=== PATIENT | male | born 1990 | race Caucasian/White ===

== ENCOUNTER 2019-04-21 09:14 | Inpatient (IN) ==
[2019-04-21] MEDS ORDERED: 0.9 % Sodium Chloride 1,000 ML IVC ONE ×2 (09:21→13:01)
[2019-04-21] MEDS ORDERED: *HR* LORazepam 2 MG/ML VIAL IVP ONE ×4 (09:21→13:01)
--- NOTE | 2019-04-21 09:51 | Emergency Department Note ---
Disposition Clinical Impression: Methamphetamine abuse, Tachycardia, Elevated blood pressure reading Altered mental status Qualifiers: Altered mental status type: unspecified Qualified Code(s): R41.82 - Altered mental status, unspecified Disposition: Admitted As Inpatient Condition: Fair Referrals: NONE,PCP [Primary Care Provider] - Forms: ED Satisfaction Letter Time of Disposition: 12:02 General Adult HPI - General Chief complaint: ED Altered Mental Status Stated complaint: od Time Seen by Provider: 04/21/19 09:20 Source: EMS Limitations: altered mental status Nursing Notes Reviewed: Yes Vital Signs Reviewed: Yes - History of Present Illness HPI Narrative: I did see the patient immediately upon arrival and also spoke with the paramedics and the patient presents after they found him outside and confused. I did review the previous record with potential abuse of cold medications/cough medications. The patient is unable to give any history at this time secondary to altered level of consciousness. The paramedics were unaware of any traumathe did not get any history or see any trauma on the patient. He has been tachycardic and blood pressure was 180 for the paramedics. Pain Scale: 0 - Related Data Home Medications Medication Instructions Recorded Confirmed ARIPiprazole [Abilify] 5 mg PO DAILY 02/25/19 02/25/19 Escitalopram [Lexapro] 10 mg PO DAILY 02/25/19 02/25/19 Gabapentin 800 mg PO TID 02/25/19 02/25/19 Allergies Allergy/AdvReac Type Severity Reaction Status Date / Time No Known Allergies Allergy Verified 03/12/19 09:26 Limitations: ROS unobtainable due to patients medical condition Past Medical History - Past Medical History Medical history: Reports: no medical history Psychiatric history: Reports: no psych history - Social History Smoking Status: Current every day smoker Smokeless Tobacco Status: No Alcohol use: Reports: none Drug use: Reports: other Physical Exam CONSTITUTIONAL: The patient is agitated, intermittently flailing arms and legs, pupils are slightly larger than normal but are reactive. Skin color is good. He is mildly diaphoretic. He is tachycardic. He does not respond to questions but does make eye contact when he is questioned. Making incomprehensible sounds. No gross evidence of trauma. HEAD: Normocephalic; atraumatic. EYES: PERRL, no scleral icterus. NOSE: The nose is normal in appearance without rhinorrhea RESP: Normal chest excursion with respiration; breath sounds clear and equal bilaterally; no wheezes, rhonchi, or rales CARD: Regular rhythm, without murmurs, rub or gallop ABD: Non-distended; non-tender, soft,without rigidity, rebound or guarding SKIN: Normal for age and race; warm and dry; no apparent lesions - General Limitations: altered mental status General appearance: alert, appears intoxicated Course Vital Signs Temperature 98.4 F 04/21/19 09:20 Pulse Rate 144 04/21/19 09:20 Respiratory Rate 20 04/21/19 09:20 Blood Pressure 152/110 04/21/19 09:20 O2 Sat by Pulse Oximetry 97 04/21/19 09:20 Temperature 98.4 F 04/21/19 09:20 Pulse Rate 134 04/21/19 13:47 Respiratory Rate 20 04/21/19 13:47 Blood Pressure 150/82 04/21/19 13:47 O2 Sat by Pulse Oximetry 98 04/21/19 13:47 Oxygen Delivery Oxygen Delivery Room Air Medical Decision Making - MDM Narrative Medical decision making narrative: The patient has the appearance of a overdose and we are initiating testing for this including serum and urine toxicology testing. The patient did receive 1 mg of Ativan and I did check on him multiple times and I just did give a second milligram of Ativan about 1 minute agothat is when he received it. We will continue to check on the patient. He is more responsive. He did say hi to the tech who is in the room but otherwise he is still intermittently flailing around and is still quite tachycardic with a heart rate in the 150s. We will continue to give additional benzodiazepines prn. 0950 I reassessed the patient on multiple occasions. He is improved and is able to carry on some minimal conversation with me. Said he did use methamphetamine this morning. He is still altered and will need to be admitted to the hospital. CT scan of the brain and chest x-ray are negative. Urine toxicology is pending. The patient denies any suicidal ideation 1202 I did speak with Dr. Power who except the patient for admission. The patient's current heart rate is 127 bpm and a sinus tachycardia and the patient will receive 1 additional liter of fluid as well as one additional milligram of Ativan. He is significantly improved but is in no way ready for discharge home. The patient is going to be admitted to the stepdown unit. 1302 I did review the patient's EKG showing sinus tachycardia with a rate of 126 bpm without acute ischemic change or evidence of arrhythmia and this was done at 10:26 AM today. 1421 - Medical Records Medical records reviewed: Yes I reviewed the patient's medical records. - Lab Data Lab results reviewed: Yes I reviewed the patient's lab results. Result diagrams: 04/21/19 09:21 04/21/19 09:21 Lab Results 04/21/19 04/21/19 04/21/19 Range/Units 09:21 09:21 11:31 WBC 11.4 H (4.3-11.1) K/mcL RBC 5.33 (4.19-5.50) M/mcL Hgb 15.3 (12.9-16.9) g/dL Hct 47.4 (37.5-50.1) % MCV 88.9 (83.0-100.0) fL MCH 28.7 (28.0-33.3) pg MCHC 32.3 (31.6-35.5) g/dL RDW 14.6 H (11.5-14.5) % Plt Count 302 (140-400) K/mcL MPV 11.7 (9.4-12.4) fL Immature Gran % 0.5 (0-4) % Seg Neutrophils % 65.9 % Lymphocytes % 24.1 % Monocytes % 8.2 % Eosinophils % 0.9 % Basophils % 0.4 % Neutrophils # 7.5 (1.6-8.9) K/mcL Lymphocytes # 2.8 (0.6-4.6) K/mcL Monocytes # 0.9 (0.0-1.3) K/mcL Eosinophils # 0.1 (0.0-0.6) K/mcL Basophils # 0.1 (0.0-0.2) K/mcL Sodium 142 (136-145) mEq/L Potassium 4.2 (3.5-5.1) mEq/L Chloride 105 (98-107) mEq/L Carbon Dioxide 28 (23-29) mEq/L BUN 16 (6-20) mg/dL Creatinine 1.14 (0.70-1.30) mg/dL Est GFR ( Amer) > 60 (> 60) Est GFR (Non-Af Amer) > 60 (> 60) BUN/Creatinine Ratio 14 (6-26) Glucose 114 H (70-105) mg/dL Calculated Osmolality 296 (280-300) Calcium 9.9 (8.6-10.3) mg/dL Total Bilirubin 0.4 (0.3-1.0) mg/dL Direct Bilirubin 0.1 (0.0-0.2) mg/dL Indirect Bilirubin 0.3 (0.0-1.2) mg/dL AST 61 H (13-39) Units/L ALT 99 H (7-52) Units/L Alkaline Phosphatase 127 H (34-104) Units/L Serum Total Protein 8.2 (6.4-8.9) g/dL Albumin 4.8 (3.5-5.7) g/dL Globulin 3.4 (2.4-3.5) g/dL Albumin/Globulin Ratio 1.4 (1.1-2.2) Urine Color Dark Yellow (Yellow) Urine Clarity Clear (Clear) Urine pH 5.5 (5.0-8.0) pH Units Ur Specific [place] > 1.030 H (1.010-1.025) Urine Protein 30 H (Neg-Trace) mg/dL Urine Glucose (UA) Normal (Normal) mg/dL Urine Ketones Negative (Negative) mg/dL Urine Blood Negative (Negative) Urine Nitrite Negative (Negative) Urine Bilirubin Negative (Negative) Urine Urobilinogen Normal (Normal) mg/dL Ur Leukocyte Esterase Negative (Negative) Urine Microscopic RBC 0-3 (0-3) per hpf Urine Microscopic WBC 5-15 H (0-3) per hpf Ur Squamous Epith Cells Many H (None-Few) per lpf Urine Bacteria Few (None-Few) per hpf Hyaline Casts Few (None-Few) per lpf Urine Mucus Moderate H (Few) Urine Sperm Present Ur Culture Indicated? YES A (NO) Salicylates < 2.5 L (15.0-30.0) mg/dL Urine Opiates Screen (Kvkgnj=815) ng/mL Ur Buprenorphine Scrn (Cutoff=5) ng/mL Acetaminophen < 10 L (10-20) mcg/mL Ur Barbiturates Screen (Iwbpfp=306) ng/mL Ur Phencyclidine Scrn (Cutoff=25) ng/mL Ur Amphetamines Screen (Lmheat=3357) ng/mL U Benzodiazepines Scrn (Wvnbxk=350) ng/mL Urine Cocaine Screen (Cutoff= 300) ng/mL U Marijuana (THC) Screen (Cutoff = 50) ng/mL Ur Drug Screen Interp Ethyl Alcohol < 10 (Less than 10) mg/dL 04/21/19 Range/Units 11:40 WBC (4.3-11.1) K/mcL RBC (4.19-5.50) M/mcL Hgb (12.9-16.9) g/dL Hct (37.5-50.1) % MCV (83.0-100.0) fL MCH (28.0-33.3) pg MCHC (31.6-35.5) g/dL RDW (11.5-14.5) % Plt Count (140-400) K/mcL MPV (9.4-12.4) fL Immature Gran % (0-4) % Seg Neutrophils % % Lymphocytes % % Monocytes % % Eosinophils % % Basophils % % Neutrophils # (1.6-8.9) K/mcL Lymphocytes # (0.6-4.6) K/mcL Monocytes # (0.0-1.3) K/mcL Eosinophils # (0.0-0.6) K/mcL Basophils # (0.0-0.2) K/mcL Sodium (136-145) mEq/L Potassium (3.5-5.1) mEq/L Chloride (98-107) mEq/L Carbon Dioxide (23-29) mEq/L BUN (6-20) mg/dL Creatinine (0.70-1.30) mg/dL Est GFR ( Amer) (> 60) Est GFR (Non-Af Amer) (> 60) BUN/Creatinine Ratio (6-26) Glucose (70-105) mg/dL Calculated Osmolality (280-300) Calcium (8.6-10.3) mg/dL Total Bilirubin (0.3-1.0) mg/dL Direct Bilirubin (0.0-0.2) mg/dL Indirect Bilirubin (0.0-1.2) mg/dL AST (13-39) Units/L ALT (7-52) Units/L Alkaline Phosphatase (34-104) Units/L Serum Total Protein (6.4-8.9) g/dL Albumin (3.5-5.7) g/dL Globulin (2.4-3.5) g/dL Albumin/Globulin Ratio (1.1-2.2) Urine Color (Yellow) Urine Clarity (Clear) Urine pH (5.0-8.0) pH Units Ur Specific [place] (1.010-1.025) Urine Protein (Neg-Trace) mg/dL Urine Glucose (UA) (Normal) mg/dL Urine Ketones (Negative) mg/dL Urine Blood (Negative) Urine Nitrite (Negative) Urine Bilirubin (Negative) Urine Urobilinogen (Normal) mg/dL Ur Leukocyte Esterase (Negative) Urine Microscopic RBC (0-3) per hpf Urine Microscopic WBC (0-3) per hpf Ur Squamous Epith Cells (None-Few) per lpf Urine Bacteria (None-Few) per hpf Hyaline Casts (None-Few) per lpf Urine Mucus (Few) Urine Sperm Ur Culture Indicated? (NO) Salicylates (15.0-30.0) mg/dL Urine Opiates Screen Negative (Gntvyd=972) ng/mL Ur Buprenorphine Scrn Negative (Cutoff=5) ng/mL Acetaminophen (10-20) mcg/mL Ur Barbiturates Screen Negative (Bcwqqd=331) ng/mL Ur Phencyclidine Scrn Negative (Cutoff=25) ng/mL Ur Amphetamines Screen Positive H (Iuphun=4452) ng/mL U Benzodiazepines Scrn Negative (Rimaac=531) ng/mL Urine Cocaine Screen Negative (Cutoff= 300) ng/mL U Marijuana (THC) Screen Negative (Cutoff = 50) ng/mL Ur Drug Screen Interp See Below Ethyl Alcohol (Less than 10) mg/dL - Radiology Data Radiology results reviewed: Yes I reviewed the patient's radiology results. Critical Care Time Critical Care Time: Yes Total Critical Care Time: 30 Attestation: 30 minutes of critical care time were spent with this patient was seen immediately upon arrival, discussion with paramedics, significant tachycardia and elevated blood pressure, methamphetamine ingestion, altered level of con sciousness, interpretation of test including chest x-ray, head CT, labs and admission to the hospital and multiple doses of Ativan as well as IV fluids
[2019-04-21 09:55] LABS: Basophils # 0.1 K/mcL (0.0-0.2); Basophils % 0.4 %; Eosinophils # 0.1 K/mcL (0.0-0.6); Eosinophils % 0.9 %; Hematocrit 47.4 % (37.5-50.1); Hemoglobin 15.3 g/dL (12.9-16.9); Immature Granulocytes % 0.5 % (0-4); Lymphocytes # 2.8 K/mcL (0.6-4.6); Lymphocytes % 24.1 %; Mean Corpuscular HGB Conc 32.3 g/dL (31.6-35.5); Mean Corpuscular Hemoglobin 28.7 pg (28.0-33.3); Mean Corpuscular Volume 88.9 fL (83.0-100.0); Mean Platelet Volume 11.7 fL (9.4-12.4); Monocytes # 0.9 K/mcL (0.0-1.3); Monocytes % 8.2 %; Neutrophils # 7.5 K/mcL (1.6-8.9); Platelet Count 302 K/mcL (140-400); Red Blood Count 5.33 M/mcL (4.19-5.50); Red Cell Distribution Width 14.6 % (11.5-14.5); Segmented Neutrophils % 65.9 %; White Blood Count 11.4 K/mcL (4.3-11.1)
[2019-04-21 10:07] LABS: Alanine Aminotransferase 99 Units/L (7-52); Albumin 4.8 g/dL (3.5-5.7); Albumin/Globulin Ratio 1.4 (1.1-2.2); Alkaline Phosphatase 127 Units/L (34-104); Aspartate Amino Transferase 61 Units/L (13-39); BUN/Creatinine Ratio 14 (6-26); Bilirubin,Direct 0.1 mg/dL (0.0-0.2); Bilirubin,Indirect 0.3 mg/dL (0.0-1.2); Bilirubin,Total 0.4 mg/dL (0.3-1.0); Blood Urea Nitrogen 16 mg/dL (6-20); Calcium 9.9 mg/dL (8.6-10.3); Carbon Dioxide 28 mEq/L (23-29); Chloride 105 mEq/L (98-107); Ethanol < 10 mg/dL (Less than 10); Globulin 3.4 g/dL (2.4-3.5); Glucose 114 mg/dL (70-105); Osmolality,Calculated 296 (280-300); Potassium 4.2 mEq/L (3.5-5.1); Sodium 142 mEq/L (136-145); Total Protein 8.2 g/dL (6.4-8.9); eGFR For African Americans > 60 (> 60); eGFR For Non-African Americans > 60 (> 60)
[2019-04-21 10:48] LABS: Acetaminophen < 10 mcg/mL (10-20); Salicylate < 2.5 mg/dL (15.0-30.0)
[2019-04-21 11:59] LABS: Bilirubin,Urine Negative (Negative); Blood,Urine Negative (Negative); Clarity,Urine Clear (Clear); Color,Urine Dark Yellow (Yellow); Glucose,Urine (UA) Normal (Normal); Ketones,Urine Negative (Negative); Leukocyte Esterase,Urine Negative (Negative); Nitrite,Urine Negative (Negative); PH,Urine 5.5 pH Units (5.0-8.0); Protein,Urine 30 mg/dL (Neg-Trace); Specific Gravity,Urine > 1.030 (1.010-1.025); Urobilinogen,Urine Normal (Normal)
[2019-04-21 12:03] LABS: Hyaline Casts,Urine Few per lpf (None-Few); RBC,Urine 0-3 per hpf (0-3); Squamous Epithelial Cell,Urine Many per lpf (None-Few)
[2019-04-21 12:12] LABS: Mucus,Urine Moderate (Few)
[2019-04-21 12:13] LABS: Bacteria,Urine Few per hpf (None-Few); Sperm,Urine Present
[2019-04-21 13:01] LABS: Amphetamine Screen,Urine Positive ng/mL (Cutoff=1000); Barbiturate Screen,Urine Negative ng/mL (Cutoff=200); Benzodiazepines Screen,Urine Negative ng/mL (Cutoff=200); Cannabinoid Screen,Urine Negative ng/mL (Cutoff = 50); Cocaine Screen,Urine Negative ng/mL (Cutoff= 300); Opiate Screen,Urine Negative ng/mL (Cutoff=300); Phencyclidine Screen,Urine Negative ng/mL (Cutoff=25)
[2019-04-21] MEDS ORDERED: Acetaminophen 325 MG TABLET PO PRN (14:26)
[2019-04-21] MEDS ORDERED: Naloxone 0.4 MG/ML INJ IVP PRN (14:26)
--- NOTE | 2019-04-21 14:33 | Internal Med History&Physical ---
Date of Encounter: 04/21/19 Time of Encounter: 14:31 Internal Medicine - H&P: HPI Chief complaint: Overdose Admitted From: Emergency Dept Plans for Post Hospital Care: Home History of present illness: Mr. Headley is a 28 year old male with history of drug abuse presents with altered mental status. I had a discussion with the patient who was able to answer some questions appropriately however could not focus on conversation and would answer other questions inappropriately. He states he does not remember the events that led to his hospitalization. He noticed that he is at [place] and he knows his name. He is not oriented to time. At times he states he took drugs that he thought was Xanax, at other times he admits to taking methamphetamine. He denies any IV drug use. He states he has used drugs for several years. He is unable to elaborate further on the events that led to his hospitalization. Per the medical record patient was found by paramedics outside and confused. Patient is unable to discuss CODE STATUS so he will remain a full code at this time. Past Med Surg Social Fam HX - Past Medical History Medical history: no medical history Psychiatric history: no psych history - Past Surgical History Additional surgical history: Patient is unable to provide a surgical history secondary to acute confusion and agitation. - Social History Smoking Status: Current every day smoker Smokeless Tobacco Status: No Alcohol use: none Drug use: other - Additional Family History Additional family history: Patient is unable to provide a family history secondary to acute confusion and agitation. Internal Medicine - H&P: Meds ARIPiprazole [Abilify] 5 mg PO DAILY 02/25/19 [History] Escitalopram [Lexapro] 10 mg PO DAILY 02/25/19 [History] Gabapentin 800 mg PO TID 02/25/19 [History] Allergy/AdvReac Type Severity Reaction Status Date / Time No Known Allergies Allergy Verified 03/12/19 09:26 ROS unobtainable: due to mental status (Patient is acutely confused and unable to participate in a complete review of systems.) All Systems PM: A 10-system review of systems was performed and is negative for pertinent findings except as documented above in the HPI. - Constitutional Vitals: Temp Pulse Resp BP Pulse Ox 98.4 F 134 20 150/82 98 04/21/19 09:20 04/21/19 13:47 04/21/19 13:47 04/21/19 13:47 04/21/19 13:47 General appearance: Present: A&O X 2. Absent: answers questions appropriately Exam: Acutely agitated and cannot sit still. - Head Head exam: Present: atraumatic, normal inspection, normocephalic - Eye Eye exam: Present: EOMI Additional comments: Pupils dilated bilaterally and minimally reactive to light. - ENT ENT exam: Present: mucous membranes dry, normal oropharynx - Neck Neck exam general surgery: Present: full ROM. Absent: tenderness - Respiratory Respiratory exam: Present: CTAB. Absent: rales, rhonchi, wheezes - Cardiovascular Cardiovascular exam: Present: tachycardia. Absent: gallop, irregular rhythm, rubs, systolic murmur - GI/Abdominal GI/Abdominal exam: Present: normal bowel sounds, soft. Absent: distended, tenderness - Extremities Exam Extremities exam: Present: warm. Absent: pedal edema, tenderness - Neurological Exam Neurological exam: Present: alert, altered, no focal deficits. Absent: oriented X3 - Psychiatric Psychiatric exam: Present: agitated, anxious. Absent: homicidal ideation, suicidal ideation - Skin Skin exam: Present: dry, intact, warm Internal Med - H&P Results - Labs CBC & Chem 7: 04/21/19 09:21 04/21/19 09:21 Labs: Short CBC 04/21/19 Range/Units 09:21 WBC 11.4 H (4.3-11.1) K/mcL Hgb 15.3 (12.9-16.9) g/dL Hct 47.4 (37.5-50.1) % Plt Count 302 (140-400) K/mcL Neutrophils # 7.5 (1.6-8.9) K/mcL BMP 04/21/19 09:21 Sodium 142 Potassium 4.2 Chloride 105 Carbon Dioxide 28 BUN 16 Creatinine 1.14 Glucose 114 H Calcium 9.9 Liver Function 04/21/19 Range/Units 09:21 Total Bilirubin 0.4 (0.3-1.0) mg/dL Direct Bilirubin 0.1 (0.0-0.2) mg/dL AST 61 H (13-39) Units/L ALT 99 H (7-52) Units/L Alkaline Phosphatase 127 H (34-104) Units/L Albumin 4.8 (3.5-5.7) g/dL Urine 04/21/19 Range/Units 11:31 Urine Color Dark Yellow (Yellow) Urine Clarity Clear (Clear) Urine pH 5.5 (5.0-8.0) pH Units Ur Specific [place] > 1.030 H (1.010-1.025) Urine Protein 30 H (Neg-Trace) mg/dL Urine Glucose (UA) Normal (Normal) mg/dL - Impressions ITS Impressions Chest X-Ray 04/21/19 09:21 IMPRESSION: 1. No active pulmonary disease. D/ / Markos Houston MD / Markos Houston MD Interpreting Provider: Markos Houston MD Head CT 04/21/19 09:25 IMPRESSION: Negative CT brain with no acute intracranial abnormality. D/ / Prakash Ibarra MD / Prakash Ibarra MD Interpreting Provider: Prakash Ibarra MD - Assessment and Plan (1) Methamphetamine abuse Current Visit: Yes Status: Acute Assessment and plan: Patient presents with agitation and confusion and per reports he admitted to using methamphetamine. He admitted to this as well. Urine toxicology is positive for amphetamines. Other than tachycardia and mild hypertension he is hemodynamically stable. He is protecting his airway. Continue supportive care with IV fluids and Ativan 1 mg every 2 hours as needed for agitation. Given his neurologic change patient is high risk for neurologic deterioration. We will have sitter with the patient to prevent any self harm. Of note he did deny any suicidal or homicidal ideation to me. (2) Tachycardia Current Visit: Yes Status: Acute Assessment and plan: EKG reviewed shows sinus tachycardia with a rate around 140. Likely secondary to methamphetamine overdose as discussed above. Laboratory evaluation reveals normal electrolytes. Chest x-ray and head CT reviewed and showed no acute changes. Continue supportive care as above. (3) Depression Current Visit: Yes Status: Acute Assessment and plan: Per the patient's medical history he does have a history of depression but denies any suicidal or homicidal ideation. Hold all medications at this time and will restart when mental status improves. Qualifiers: Depression Type: unspecified Qualified Code(s): F32.9 - Major depressive disorder, single episode, unspecified (4) DVT prophylaxis Current Visit: Yes Status: Acute Assessment and plan: Lovenox 40 mg daily. - Time Spent With Patient Total time spent is greater than 50% in coordination of care (as documented) at patient's floor/unit and/or counseling patient:
[2019-04-21] MEDS: *HR* LORazepam 2 MG/ML VIAL IVP PRN ×4 (16:52→23:58)
--- NOTE | 2019-04-21 18:27 | Electrocardiograph Report ---
[email or web address] Test Date: 2019-04-21 Pat Name: Fransisco Headley Department: EXAM10 Room: 2N02 Gender: M [employer] Specialist: : [id number] Requested By: Anastacio Garcia Order Number: [id number] Reading MD: Oleksandr Zhu Measurements Intervals [place] Rate: 126 P: 62 PA: 151 QRS: 61 QRSD: 101 T: 265 QT: 286 QTc: 414 Interpretive Statements Sinus tachycardia Electronically Signed On 04-21-2019 18:26:11 EDT by Oleksandr Zhu
[2019-04-21] MEDS: 0.9 % Sodium Chloride 1,000 ML IVC SCH (19:37)
[2019-04-22 00:44] LABS: Basophils % 0.1 %; Hemoglobin 13.9 g/dL (12.9-16.9); Immature Granulocytes % 0.3 % (0-4); Lymphocytes # 1.1 K/mcL (0.6-4.6); Lymphocytes % 10.9 %; Mean Corpuscular HGB Conc 33.1 g/dL (31.6-35.5); Mean Corpuscular Hemoglobin 29.1 pg (28.0-33.3); Mean Corpuscular Volume 88.1 fL (83.0-100.0); Mean Platelet Volume 11.1 fL (9.4-12.4); Monocytes # 0.7 K/mcL (0.0-1.3); Monocytes % 7.1 %; Neutrophils # 8.3 K/mcL (1.6-8.9); Platelet Count 220 K/mcL (140-400); Red Blood Count 4.77 M/mcL (4.19-5.50); Red Cell Distribution Width 14.6 % (11.5-14.5); Segmented Neutrophils % 81.6 %; White Blood Count 10.1 K/mcL (4.3-11.1)
[2019-04-22] MEDS: 0.9 % Sodium Chloride 1,000 ML IVC SCH (01:00)
[2019-04-22 01:05] LABS: BUN/Creatinine Ratio 13 (6-26); Blood Urea Nitrogen 12 mg/dL (6-20); Calcium 9.4 mg/dL (8.6-10.3); Carbon Dioxide 24 mEq/L (23-29); Chloride 110 mEq/L (98-107); Glucose 100 mg/dL (70-105); Magnesium 1.9 mg/dL (1.6-2.6); Osmolality,Calculated 296 (280-300); Sodium 143 mEq/L (136-145); eGFR For African Americans > 60 (> 60); eGFR For Non-African Americans > 60 (> 60)
[2019-04-22] MEDS: *HR* LORazepam 2 MG/ML VIAL IVP PRN ×4 (04:28→23:50)
[2019-04-22] MEDS ORDERED: *HR* LORazepam 2 MG/ML VIAL IVP ONE (04:39)
[2019-04-22] MEDS: *HR* Enoxaparin 40 MG/0.4 ML SYRINGE SQ SCH (04:56)
[2019-04-22] MEDS ORDERED: Dexmedetomidine HCl 400 MCG/100 ML MLS IVC ONE (05:54)
[2019-04-22] MEDS ORDERED: Dexmedetomidine HCl 400 MCG/100 ML MLS IVC SCH (06:00)
[2019-04-22] MEDS: Dexmedetomidine HCl 400 MCG/100 ML MLS IVC SCH ×5 (06:11→20:44)
--- NOTE | 2019-04-22 06:14 | Event Note ---
Date of Encounter: 04/22/19 Time of Encounter: 06:12 Patient became increasingly agitated throughout the night. A one-time dose of 4 mg Ativan was ordered, however shortly after receiving this medication the patient became aggressive with hospital staff. Upon arrival by this provider the patient was noted to be confused and speaking nonsense suggestive of hallucinations. Patient remained agitated and would not cooperate for a full physical exam. Pupils were noted to be dilated symmetrically. The decision was then made to place the patient on a Precedex drip.
--- NOTE | 2019-04-22 08:28 | Internal Med Progress Note ---
<Anastacio Flower - Last Filed: 04/22/19 14:26> Hospitalist Progress Note - Encounter Date of Encounter: 04/22/19 - Exam Vitals: Temp Pulse Resp BP Pulse Ox 98.0 F 83 20 120/84 98 04/22/19 10:40 04/22/19 10:40 04/22/19 10:40 04/22/19 10:40 04/22/19 10:40 - Assessment and Plan (1) Methamphetamine abuse Current Visit: Yes Status: Acute (2) Tachycardia Current Visit: Yes Status: Acute (3) Depression Current Visit: Yes Status: Acute (4) DVT prophylaxis Current Visit: Yes Status: Acute - Time Spent with Patient Total time spent is greater than 50% in coordination of care (as documented) at patient's floor/unit and/or counseling patient: Internal Medicine: Result - Labs CBC & Chem 7: 04/22/19 00:33 04/22/19 00:33 Labs: Short CBC 04/22/19 Range/Units 00:33 WBC 10.1 (4.3-11.1) K/mcL Hgb 13.9 (12.9-16.9) g/dL Hct 42.0 (37.5-50.1) % Plt Count 220 (140-400) K/mcL Neutrophils # 8.3 (1.6-8.9) K/mcL BMP 04/22/19 00:33 Sodium 143 Potassium 4.0 Chloride 110 H Carbon Dioxide 24 BUN 12 Creatinine 0.92 Glucose 100 Calcium 9.4 Consult Discharge Plan - Plan Referrals: NONE,PCP [Primary Care Provider] - - Attending Attestation I examined this patient and my medical decision-making was reviewed with the Resident Physician. I agree with the documented findings, disposition and treatment plan as described except to the extent set forth below. Patient seen and examined at bedside. Patient remains slightly confused but mental status appears better than yesterday. He is able to answer questions appropriately however is easily distracted. On exam heart is regular rate and rhythm, no longer tachycardic. Patient is unable to sit still and has frequent movements. Methamphetamine abuse: Patient continues to be symptomatic although improving. Patient was extremely agitated overnight and Precedex was started, we will attempt to wean down and transition to as needed Ativan as methamphetamine wears off. <Maria Teresa Huddleston - Last Filed: 04/22/19 16:34> Hospitalist Progress Note - Encounter Date of Encounter: 04/22/19 Time of Encounter: 08:27 - Subjective Interval History: Pt seen and examined at bedside this morning. Currently on precedex drip as he was noted to be confused, agitated, aggressive, and hallucinating overnight. Pt did not initially respond to 4mg of ativan. Hemodynamically stable. Labs wnl. Did not wake at time of my exam. Will wean precedex drip today, and re-evaluate this afternoon. - Exam Vitals: Temp Pulse Resp BP Pulse Ox 98.4 F 110 18 122/64 98 04/22/19 06:21 04/22/19 06:30 04/22/19 06:21 04/22/19 06:30 04/22/19 06:21 Exam: GEN: 28-year-old male asleep in bed. Did not arouse during my examination. Vitals stable. No acute distress. AAOx3 HEENT: Atraumatic, Normocephalic, PERRLA, EOMI NECK: Supple, no lymphadenopathy, no JVD CARDIAC: RRR, s1 and s2 present, no murmurs, rubs, gallops PULM: CTAB, not in respiratory distress, no rales, crackles, rhonchi. Notable snoring. Notable wheezing bilaterally. ABD: Soft, non-tender, non-distended, no guarding or rebound tenderness. Bowel sounds present EXT: No peripheral edema. No calf tenderness, cyanosis, clubbing NEURO: CN 2-12 grossly intact. No focal neurologic deficits. Follows commands PSYCH: Appropriate mood and affect - Assessment and Plan (1) Methamphetamine abuse Current Visit: Yes Status: Acute Assessment and Plan: This is a 28-year-old male with past medical history significant for drug abuse who initially presented with altered mental status. - Patient was altered at admission. Unable to provide clear history. Does not remember events leading hospitalization. - AOx2 on admission (to person and place, but not time) - States that he took meth. Denies IV drug use - Found by paramedics altered and brought to the ED. - Initially in the emergency department, patient's vitals are hemodynamically stable. Patient was noted to be tachycardic. Lab work was otherwise benign. - Urine toxicology = positive amphetamines - Urine culture pending - CBC, BMP within normal limits. - Chest x-ray = no acute pulmonary disease - Head CT = negative CT with no acute intracranial abnormality - Patient was given IV fluids and IV Ativan. - Admitted for further management of methamphetamine intoxication - Overnight, patient was noted to be significantly confused, agitated, aggressive, hallucinating. Initially was managed with Ativan, but patient did not comment down with initial dosing. Patient was then started on Precedex drip. - Attempted to slowly wean Precedex drip throughout the day today. As Precedex was weaned, patient awakens, got up, and proceeded to walk out the door of [address]. He also urinated on the floor. Patient was very resistant to Ativan. He was very combative and attempted to fight nurses. Patient was able to tolerate IV Ativan eventually. When back in bed, Precedex drip was restarted. Vital stable. PLAN: Patient presents with methamphetamine abuse. He was confused, agitated, aggressive on admission. IV fluids and IV Ativan were given, but patient remained altered. Precedex was started. - We will continue Precedex throughout the day and night tonight given patient's outburst this afternoon. - IV Ativan as needed - Continue to monitor with a sitter - We will again attempt to wean Precedex tomorrow; will supplement with 2 mg IV Ativan as needed every 2 hours - Continue to monitor for worsening vital signs including tachycardia, worsening respiratory status - With improving mental status, will restart home psych medications (2) Altered mental status Current Visit: Yes Status: Acute Assessment and Plan: Plan as above for methamphetamine abuse. - We will continue Precedex drip overnight. - Attempt to wean Precedex in the a.m. (3) Tachycardia Current Visit: Yes Status: Acute Assessment and Plan: Initial EKG showed sinus tachycardia. HR = 140 - U tox = positive methamphetamines - CBC, BMP within normal limits. - Chest x-ray = no acute pulmonary disease - Head CT = negative CT with no acute intracranial abnormality PLAN: Tachycardia was initially likely secondary to methamphetamine abuse - Continue to monitor on telemetry - Continue with sedation; will attempt to wean in the a.m. - Continue supportive care (4) Depression Current Visit: Yes Status: Acute Assessment and Plan: Patient has history of depression. Initially denied any suicidal or homicidal ideation - Normal labs and electrolytes PLAN: - Resume home medications and patient's mental status improves. (5) Tobacco abuse Current Visit: Yes Status: Acute Assessment and Plan: Patient is a daily smoker - Notably wheezing on my physical exam PLAN: - Scheduled DuoNeb's - Continue to monitor oxygen saturation (6) DVT prophylaxis Current Visit: Yes Status: Acute Assessment and Plan: PLAN: - Cont Lovenox DVT Prophylaxis: Lovenox - Time Spent with Patient Total time spent is greater than 50% in coordination of care (as documented) at patient's floor/unit and/or counseling patient: less than 15 minutes Plan of Care Discussed with: nurse Internal Medicine: Result - Labs CBC & Chem 7: 04/22/19 00:33 04/22/19 00:33 Labs: Short CBC 04/21/19 04/22/19 Range/Units 09:21 00:33 WBC 11.4 H 10.1 (4.3-11.1) K/mcL Hgb 15.3 13.9 (12.9-16.9) g/dL Hct 47.4 42.0 (37.5-50.1) % Plt Count 302 220 (140-400) K/mcL Neutrophils # 7.5 8.3 (1.6-8.9) K/mcL BMP 04/21/19 04/22/19 09:21 00:33 Sodium 142 143 Potassium 4.2 4.0 Chloride 105 110 H Carbon Dioxide 28 24 BUN 16 12 Creatinine 1.14 0.92 Glucose 114 H 100 Calcium 9.9 9.4 Liver Function 04/21/19 Range/Units 09:21 Total Bilirubin 0.4 (0.3-1.0) mg/dL Direct Bilirubin 0.1 (0.0-0.2) mg/dL AST 61 H (13-39) Units/L ALT 99 H (7-52) Units/L Alkaline Phosphatase 127 H (34-104) Units/L Albumin 4.8 (3.5-5.7) g/dL Urine 04/21/19 Range/Units 11:31 Urine Color Dark Yellow (Yellow) Urine Clarity Clear (Clear) Urine pH 5.5 (5.0-8.0) pH Units Ur Specific [place] > 1.030 H (1.010-1.025) Urine Protein 30 H (Neg-Trace) mg/dL Urine Glucose (UA) Normal (Normal) mg/dL - Impressions Impressions Chest X-Ray 04/21/19 09:21 IMPRESSION: 1. No active pulmonary disease. D/ / Markos Houston MD / Markos Houston MD Interpreting Provider: Markos Houston MD Head CT 04/21/19 09:25 IMPRESSION: Negative CT brain with no acute intracranial abnormality. D/ / Prakash Ibarra MD / Prakash Ibarra MD Interpreting Provider: Prakash Ibarra MD <Anastacio Flower - Last Filed: 04/22/19 14:26> (3) Depression Qualifiers: Depression Type: unspecified Qualified Code(s): F32.9 - Major depressive disorder, single episode, unspecified <Maria Teresa Huddleston - Last Filed: 04/22/19 16:34> (2) Altered mental status Qualifiers: Altered mental status type: unspecified Qualified Code(s): R41.82 - Altered mental status, unspecified (4) Depression Qualifiers: Depression Type: unspecified Qualified Code(s): F32.9 - Major depressive disorder, single episode, unspecified
[2019-04-22] MEDS: Ipratropium/Albuterol Neb 3 ML IH SCH ×2 (16:09→22:27)
[2019-04-23] MEDS: Dexmedetomidine HCl 400 MCG/100 ML MLS IVC SCH ×6 (00:25→20:25)
[2019-04-23] MEDS: Ipratropium/Albuterol Neb 3 ML IH SCH ×4 (04:04→22:28)
[2019-04-23] MEDS: *HR* Enoxaparin 40 MG/0.4 ML SYRINGE SQ SCH (05:07)
[2019-04-23 05:57] LABS: BUN/Creatinine Ratio 17 (6-26); Blood Urea Nitrogen 15 mg/dL (6-20); Calcium 9.4 mg/dL (8.6-10.3); Carbon Dioxide 25 mEq/L (23-29); Chloride 105 mEq/L (98-107); Glucose 108 mg/dL (70-105); Osmolality,Calculated 295 (280-300); Sodium 142 mEq/L (136-145); eGFR For African Americans > 60 (> 60); eGFR For Non-African Americans > 60 (> 60)
[2019-04-23] MEDS: *HR* LORazepam 2 MG/ML VIAL IVP PRN (08:04)
--- NOTE | 2019-04-23 08:35 | Internal Med Progress Note ---
<Anastacio Flower - Last Filed: 04/23/19 14:05> Hospitalist Progress Note - Encounter Date of Encounter: 04/23/19 - Exam Vitals: Temp Pulse Resp BP Pulse Ox 97.8 F 56 16 145/103 99 04/23/19 11:15 04/23/19 11:15 04/23/19 11:15 04/23/19 11:15 04/23/19 11:15 - Assessment and Plan (1) Methamphetamine abuse Current Visit: Yes Status: Acute (2) Tachycardia Current Visit: Yes Status: Acute (3) Depression Current Visit: Yes Status: Acute (4) DVT prophylaxis Current Visit: Yes Status: Acute - Time Spent with Patient Total time spent is greater than 50% in coordination of care (as documented) at patient's floor/unit and/or counseling patient: Internal Medicine: Result - Labs CBC & Chem 7: 04/22/19 00:33 04/23/19 05:09 Labs: BMP 04/23/19 05:09 Sodium 142 Potassium 4.0 Chloride 105 Carbon Dioxide 25 BUN 15 Creatinine 0.86 Glucose 108 H Calcium 9.4 Consult Discharge Plan - Plan Referrals: NONE,PCP [Primary Care Provider] - - Attending Attestation Patient seen and examined at bedside. Patient remains slightly agitatied but mental status appears much better than yesterday. He is able to give a full history of the events leading to his hospitalization. On exam heart is regular rate and rhythm, tachycardic. Patient is unable to sit still. Alert and oriented times 3 Methamphetamine abuse: Patient continues to be symptomatic although improving. Patient remains on Precedex, we will wean as tolerated and transition to Ativan. Consulted psychiatry who recommended weaning off Precedex and starting Geodon 20 mg IM every 4-6 hours as needed for agitation and psychosis. Continue Ativan as needed as well. <Maria Teresa Huddleston - Last Filed: 04/23/19 14:59> Hospitalist Progress Note - Encounter Date of Encounter: 04/23/19 Time of Encounter: 08:35 - Subjective Interval History: Patient was seen and examined at bedside this morning. He was much more alert and was able to speak to me this morning. He was alert and oriented 2 (to person/place, but not time). He does have some insight into what brought him into the hospital. However patient did seem paranoid that somebody was going to come attack him. He initially seemed to be hallucinating and "punching the air" stating that somebody was in a come attack him. He has remained on Precedex and Ativan. Given his agitation, aggression, we have been unable to wean him off. We have consulted psychiatry for their further recommendations. Otherwise, patient is stable in no acute distress. - Exam Vitals: Temp Pulse Resp BP Pulse Ox 98.3 F 64 17 147/95 98 04/23/19 07:18 04/23/19 07:18 04/23/19 07:18 04/23/19 07:18 04/23/19 08:16 Exam: GEN: 28-year-old male was sitting at bedside. He is mumbling to himself. Vitals stable. No acute distress. AAOx2 (to person and place, but not time) HEENT: Atraumatic, Normocephalic, PERRLA, EOMI NECK: Supple, no lymphadenopathy, no JVD CARDIAC: RRR, s1 and s2 present, no murmurs, rubs, gallops PULM: CTAB, not in respiratory distress, no wheezes, rales, crackles, rhonchi ABD: Soft, non-tender, non-distended, no guarding or rebound tenderness. Bowel sounds present EXT: No peripheral edema. No calf tenderness, cyanosis, clubbing NEURO: CN 2-12 grossly intact. No focal neurologic deficits. Follows commands PSYCH: Patient seems mildly agitated, and confused. He is paranoid that somebody will attack him. He is elucidating that somebody is in front of him, and is punching the air. He does have insight into why he is in the hospital. He does have insight of the events that occurred before his admission. - Assessment and Plan (1) Methamphetamine abuse Current Visit: Yes Status: Acute Assessment and Plan: This is a 28-year-old male with past medical history significant for drug abuse who initially presented with altered mental status. - Patient was altered at admission. Unable to provide clear history. Does not remember events leading hospitalization. - AOx2 on admission (to person and place, but not time) - States that he took meth. Denies IV drug use - Found by paramedics altered and brought to the ED. - Initially in the emergency department, patient's vitals are hemodynamically stable. Patient was noted to be tachycardic. Lab work was otherwise benign. - Urine toxicology = positive amphetamines - Urine culture pending - CBC, BMP within normal limits. - Chest x-ray = no acute pulmonary disease - Head CT = negative CT with no acute intracranial abnormality - Patient was given IV fluids and IV Ativan. - Admitted for further management of methamphetamine intoxication - Patient remains on Precedex and Ativan. He is currently more alert and oriented today. He is still somewhat confused and altered. He does have insight into why he is into the hospital. He continues to be paranoid that somebody will attack him. He additionally is having hallucinations. PLAN: Patient presents with methamphetamine abuse. He was confused, agitated, aggressive on admission. IV fluids and IV Ativan were given, but patient remained altered. Precedex was started. - Continue Precedex. However attempt to wean if possible. - IV Ativan as needed - Continue to monitor with a sitter - Psychiatry was consulted. Recommendations appreciated. - Psychiatry does recommend weaning off Precedex if possible. They recommended Geodon 20 mg IM every 4-6 hours as needed for agitation or psychosis. Additionally recommend transitioning to by mouth Geodon 20 mg twice a day scheduled. We will continue with Ativan as needed for anxiety. - Continue to monitor for worsening vital signs including tachycardia, worsening respiratory status - With improving mental status, will restart home psych medications - At time of discharge, patient would benefit from going to dual diagnosis program. When patient is less altered, discussion should be broached (2) Altered mental status Current Visit: Yes Status: Acute Assessment and Plan: Plan as above for methamphetamine abuse. - Attempt to wean Precedex drip - Psychiatry recommendations as above (3) Tachycardia Current Visit: Yes Status: Acute Assessment and Plan: Initial EKG showed sinus tachycardia. HR = 140 - U tox = positive methamphetamines - CBC, BMP within normal limits. - Chest x-ray = no acute pulmonary disease - Head CT = negative CT with no acute intracranial abnormality PLAN: Tachycardia was initially likely secondary to methamphetamine abuse; currently resolved - Continue to monitor on telemetry - Continue supportive care (4) Depression Current Visit: Yes Status: Acute Assessment and Plan: Patient has history of depression. Initially denied any suicidal or homicidal ideation - Normal labs and electrolytes PLAN: - Resume home medications and patient's mental status improves. (5) Tobacco abuse Current Visit: Yes Status: Acute Assessment and Plan: Patient is a daily smoker - Wheezing is improved from yesterday. PLAN: - Scheduled DuoNeb's - Continue to monitor oxygen saturation (6) DVT prophylaxis Current Visit: Yes Status: Acute Assessment and Plan: PLAN: - Cont Lovenox DVT Prophylaxis: Lovenox - Time Spent with Patient Total time spent is greater than 50% in coordination of care (as documented) at patient's floor/unit and/or counseling patient: less than 15 minutes Internal Medicine: Result - Labs CBC & Chem 7: 04/22/19 00:33 04/23/19 05:09 Labs: BMP 04/23/19 05:09 Sodium 142 Potassium 4.0 Chloride 105 Carbon Dioxide 25 BUN 15 Creatinine 0.86 Glucose 108 H Calcium 9.4 <Anastacio Flower - Last Filed: 04/23/19 14:05> (3) Depression Qualifiers: Depression Type: unspecified Qualified Code(s): F32.9 - Major depressive disorder, single episode, unspecified <Maria Teresa Huddleston - Last Filed: 04/23/19 14:59> (2) Altered mental status Qualifiers: Altered mental status type: unspecified Qualified Code(s): R41.82 - Altered mental status, unspecified (4) Depression Qualifiers: Depression Type: unspecified Qualified Code(s): F32.9 - Major depressive disorder, single episode, unspecified
[2019-04-23] MEDS ORDERED: *HR* LORazepam 2 MG/ML VIAL ONE (08:45)
[2019-04-23] MEDS ORDERED: *HR* LORazepam 1 MG TABLET PO ONE (08:50)
--- NOTE | 2019-04-23 11:49 | Consult Note ---
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 At this point if he can tolerate being off the Precedex I would recommend stopping that and instead changing to Geodon 20 mg IM every 4-6 hours as needed for agitation and psychosis. If he is calm enough to take it orally I would go ahead and start scheduled Geodon oral at 20 mg twice a day scheduled. He can continue to use the lorazepam as needed for anxiety. If he is willing to go to a dual diagnosis program once he is medically stable I would recommend going to [facility], [facility] psychiatry, or [facility] for this treatment. History of Present Illness Requesting Physician: Anastacio Flower, Reason for consult: Altered mental status and agitation History of present illness: Mr. Headley is a 28 year old male with history of drug abuse presents with altered mental status. He has had severe agitation during his course on the medical floor and has required many doses of Precedex and lorazepam. Spoke with him this morning he was somewhat more oriented. He understood he was in the hospital. He did continue to have darting eyes and was talking about the room and asked him what was wrong he said he was afraid someone was going to punch him. He did accept reassurance that he was in a safe place and he had enough insight to say that it was likely related to the methamphetamine and crack them that he had used prior to coming to the hospital. Records indicated that he may have used some cough medicine. He said this is not one of his drugs of choice but it is possible he had used some while he was intoxicated. He was still somewhat impulsive as he got up to the restroom without saying that he was doing however he was redirectable and accepted help from the sitter who was in the room with him. He denied current auditory or visual hallucinations. No suicidal or homicidal thoughts ideations or plans. CC: Anastacio Flower, Past Med Surg Social Fam HX - Past Medical History Medical history: no medical history - Past Psychiatric History Psychiatric history: Reports: previous psychiatric hospitalization. Denies: prior suicide attempt Past psychiatric history details: He has previously been on Lexapro and trazodone. He has a prior psychiatric hospitalization. He denies prior suicide attempt. Family psychiatric history: Unknown Family History of Suicide: Unknown - Social History Smoking Status: Current every day smoker Smokeless Tobacco Status: No Alcohol use: none Drug use: other Medications & Allergies Escitalopram [Lexapro] 10 mg PO DAILY 02/25/19 [History] Gabapentin 800 mg PO TID 02/25/19 [History] Ibuprofen 800 mg PO TID 04/22/19 [History] traZODone [TraZODone] 50 mg PO HS 04/22/19 [History] Allergy/AdvReac Type Severity Reaction Status Date / Time No Known Allergies Allergy Verified 04/22/19 13:44 Review of Systems Constitutional: Denies: fever Eyes: Denies: eye pain Ears, Nose, Throat: Denies: ear pain Cardiovascular: Denies: chest pain Respiratory: Denies: cough Gastrointestinal: Denies: abdominal pain Genitourinary male: Denies: urgency Musculoskeletal: Reports: joint pain Integumentary: Denies: rash Neurological: Reports: confusion Psychiatric: Reports: auditory hallucinations, confusion, irritability Endocrine: Denies: fatigue Hematologic/Lymphatic: Denies: easy bleeding Allergic/Immunologic: Denies: facial swelling Psychiatry Exam - Constitutional Vitals: Temp Pulse Resp BP Pulse Ox 97.8 F 56 16 145/103 99 04/23/19 11:15 04/23/19 11:15 04/23/19 11:15 04/23/19 11:15 04/23/19 11:15 General appearance: disheveled - Musculoskeletal Gait: unsteady Station: stooped Strength & Tone: mild weakness - Psychiatric Patient Orientation: Yes Person, Yes Place, Yes Circumstance Level of alertness: Alert Behavior: impulsive Psychomotor activity: Increased Eye Contact: Minimal Contact Mood Description: Labile Patient description of mood: "I do not know" Affect description: labile Speech Volume: Normal Speech pattern: excessive Language & Vocabulary: limited Thought Process: Disorganized Thought Content: No Suicidal ideation, No Homicidal ideation, Yes Paranoid delusion Perceptual Disturbances: Yes Auditory hallucinations, Yes Visual hallucinations Attention Span Ability: Unable to Focus, Unable to Sustain Attention Memory Description: Immediate Impaired, Recent Impaired, Remote Impaired Patient Reliability: Not Reliable Historian Fund of knowledge: Yes below average Intelligence Estimate: Above [place] Judgment: Poor Insight: None Results - Drug Levels and Toxicology Drug Levels and Toxicology: Lab Results 04/21/19 04/21/19 04/21/19 Range/Units 09:21 09:21 11:31 WBC 11.4 H (4.3-11.1) K/mcL RBC 5.33 (4.19-5.50) M/mcL Hgb 15.3 (12.9-16.9) g/dL Hct 47.4 (37.5-50.1) % MCV 88.9 (83.0-100.0) fL MCH 28.7 (28.0-33.3) pg MCHC 32.3 (31.6-35.5) g/dL RDW 14.6 H (11.5-14.5) % Plt Count 302 (140-400) K/mcL MPV 11.7 (9.4-12.4) fL Immature Gran % 0.5 (0-4) % Seg Neutrophils % 65.9 % Lymphocytes % 24.1 % Monocytes % 8.2 % Eosinophils % 0.9 % Basophils % 0.4 % Neutrophils # 7.5 (1.6-8.9) K/mcL Lymphocytes # 2.8 (0.6-4.6) K/mcL Monocytes # 0.9 (0.0-1.3) K/mcL Eosinophils # 0.1 (0.0-0.6) K/mcL Basophils # 0.1 (0.0-0.2) K/mcL Sodium 142 (136-145) mEq/L Potassium 4.2 (3.5-5.1) mEq/L Chloride 105 (98-107) mEq/L Carbon Dioxide 28 (23-29) mEq/L BUN 16 (6-20) mg/dL Creatinine 1.14 (0.70-1.30) mg/dL Est GFR ( Amer) > 60 (> 60) Est GFR (Non-Af Amer) > 60 (> 60) BUN/Creatinine Ratio 14 (6-26) Glucose 114 H (70-105) mg/dL Calculated Osmolality 296 (280-300) Calcium 9.9 (8.6-10.3) mg/dL Magnesium (1.6-2.6) mg/dL Total Bilirubin 0.4 (0.3-1.0) mg/dL Direct Bilirubin 0.1 (0.0-0.2) mg/dL Indirect Bilirubin 0.3 (0.0-1.2) mg/dL AST 61 H (13-39) Units/L ALT 99 H (7-52) Units/L Alkaline Phosphatase 127 H (34-104) Units/L Serum Total Protein 8.2 (6.4-8.9) g/dL Albumin 4.8 (3.5-5.7) g/dL Globulin 3.4 (2.4-3.5) g/dL Albumin/Globulin Ratio 1.4 (1.1-2.2) Urine Color Dark Yellow (Yellow) Urine Clarity Clear (Clear) Urine pH 5.5 (5.0-8.0) pH Units Ur Specific [place] > 1.030 H (1.010-1.025) Urine Protein 30 H (Neg-Trace) mg/dL Urine Glucose (UA) Normal (Normal) mg/dL Urine Ketones Negative (Negative) mg/dL Urine Blood Negative (Negative) Urine Nitrite Negative (Negative) Urine Bilirubin Negative (Negative) Urine Urobilinogen Normal (Normal) mg/dL Ur Leukocyte Esterase Negative (Negative) Urine Microscopic RBC 0-3 (0-3) per hpf Urine Microscopic WBC 5-15 H (0-3) per hpf Ur Squamous Epith Cells Many H (None-Few) per lpf Urine Bacteria Few (None-Few) per hpf Hyaline Casts Few (None-Few) per lpf Urine Mucus Moderate H (Few) Urine Sperm Present Ur Culture Indicated? YES A (NO) Salicylates < 2.5 L (15.0-30.0) mg/dL Urine Opiates Screen (Jbzuvn=722) ng/mL Ur Buprenorphine Scrn (Cutoff=5) ng/mL Acetaminophen < 10 L (10-20) mcg/mL Ur Barbiturates Screen (Ymolgm=985) ng/mL Ur Phencyclidine Scrn (Cutoff=25) ng/mL Ur Amphetamines Screen (Qosqdw=9452) ng/mL U Benzodiazepines Scrn (Imutzr=027) ng/mL Urine Cocaine Screen (Cutoff= 300) ng/mL U Marijuana (THC) Screen (Cutoff = 50) ng/mL Ur Drug Screen Interp Ethyl Alcohol < 10 (Less than 10) mg/dL 04/21/19 04/22/19 04/22/19 Range/Units 11:40 00:33 00:33 WBC 10.1 (4.3-11.1) K/mcL RBC 4.77 (4.19-5.50) M/mcL Hgb 13.9 (12.9-16.9) g/dL Hct 42.0 (37.5-50.1) % MCV 88.1 (83.0-100.0) fL MCH 29.1 (28.0-33.3) pg MCHC 33.1 (31.6-35.5) g/dL RDW 14.6 H (11.5-14.5) % Plt Count 220 (140-400) K/mcL MPV 11.1 (9.4-12.4) fL Immature Gran % 0.3 (0-4) % Seg Neutrophils % 81.6 % Lymphocytes % 10.9 % Monocytes % 7.1 % Eosinophils % 0.0 % Basophils % 0.1 % Neutrophils # 8.3 (1.6-8.9) K/mcL Lymphocytes # 1.1 (0.6-4.6) K/mcL Monocytes # 0.7 (0.0-1.3) K/mcL Eosinophils # 0.0 (0.0-0.6) K/mcL Basophils # 0.0 (0.0-0.2) K/mcL Sodium 143 (136-145) mEq/L Potassium 4.0 (3.5-5.1) mEq/L Chloride 110 H (98-107) mEq/L Carbon Dioxide 24 (23-29) mEq/L BUN 12 (6-20) mg/dL Creatinine 0.92 (0.70-1.30) mg/dL Est GFR ( Amer) > 60 (> 60) Est GFR (Non-Af Amer) > 60 (> 60) BUN/Creatinine Ratio 13 (6-26) Glucose 100 (70-105) mg/dL Calculated Osmolality 296 (280-300) Calcium 9.4 (8.6-10.3) mg/dL Magnesium 1.9 (1.6-2.6) mg/dL Total Bilirubin (0.3-1.0) mg/dL Direct Bilirubin (0.0-0.2) mg/dL Indirect Bilirubin (0.0-1.2) mg/dL AST (13-39) Units/L ALT (7-52) Units/L Alkaline Phosphatase (34-104) Units/L Serum Total Protein (6.4-8.9) g/dL Albumin (3.5-5.7) g/dL Globulin (2.4-3.5) g/dL Albumin/Globulin Ratio (1.1-2.2) Urine Color (Yellow) Urine Clarity (Clear) Urine pH (5.0-8.0) pH Units Ur Specific [place] (1.010-1.025) Urine Protein (Neg-Trace) mg/dL Urine Glucose (UA) (Normal) mg/dL Urine Ketones (Negative) mg/dL Urine Blood (Negative) Urine Nitrite (Negative) Urine Bilirubin (Negative) Urine Urobilinogen (Normal) mg/dL Ur Leukocyte Esterase (Negative) Urine Microscopic RBC (0-3) per hpf Urine Microscopic WBC (0-3) per hpf Ur Squamous Epith Cells (None-Few) per lpf Urine Bacteria (None-Few) per hpf Hyaline Casts (None-Few) per lpf Urine Mucus (Few) Urine Sperm Ur Culture Indicated? (NO) Salicylates (15.0-30.0) mg/dL Urine Opiates Screen Negative (Vfutjb=568) ng/mL Ur Buprenorphine Scrn Negative (Cutoff=5) ng/mL Acetaminophen (10-20) mcg/mL Ur Barbiturates Screen Negative (Wwpfdd=819) ng/mL Ur Phencyclidine Scrn Negative (Cutoff=25) ng/mL Ur Amphetamines Screen Positive H (Cqofsj=9508) ng/mL U Benzodiazepines Scrn Negative (Dbfvub=812) ng/mL Urine Cocaine Screen Negative (Cutoff= 300) ng/mL U Marijuana (THC) Screen Negative (Cutoff = 50) ng/mL Ur Drug Screen Interp See Below Ethyl Alcohol (Less than 10) mg/dL 04/23/19 Range/Units 05:09 WBC (4.3-11.1) K/mcL RBC (4.19-5.50) M/mcL Hgb (12.9-16.9) g/dL Hct (37.5-50.1) % MCV (83.0-100.0) fL MCH (28.0-33.3) pg MCHC (31.6-35.5) g/dL RDW (11.5-14.5) % Plt Count (140-400) K/mcL MPV (9.4-12.4) fL Immature Gran % (0-4) % Seg Neutrophils % % Lymphocytes % % Monocytes % % Eosinophils % % Basophils % % Neutrophils # (1.6-8.9) K/mcL Lymphocytes # (0.6-4.6) K/mcL Monocytes # (0.0-1.3) K/mcL Eosinophils # (0.0-0.6) K/mcL Basophils # (0.0-0.2) K/mcL Sodium 142 (136-145) mEq/L Potassium 4.0 (3.5-5.1) mEq/L Chloride 105 (98-107) mEq/L Carbon Dioxide 25 (23-29) mEq/L BUN 15 (6-20) mg/dL Creatinine 0.86 (0.70-1.30) mg/dL Est GFR ( Amer) > 60 (> 60) Est GFR (Non-Af Amer) > 60 (> 60) BUN/Creatinine Ratio 17 (6-26) Glucose 108 H (70-105) mg/dL Calculated Osmolality 295 (280-300) Calcium 9.4 (8.6-10.3) mg/dL Magnesium (1.6-2.6) mg/dL Total Bilirubin (0.3-1.0) mg/dL Direct Bilirubin (0.0-0.2) mg/dL Indirect Bilirubin (0.0-1.2) mg/dL AST (13-39) Units/L ALT (7-52) Units/L Alkaline Phosphatase (34-104) Units/L Serum Total Protein (6.4-8.9) g/dL Albumin (3.5-5.7) g/dL Globulin (2.4-3.5) g/dL Albumin/Globulin Ratio (1.1-2.2) Urine Color (Yellow) Urine Clarity (Clear) Urine pH (5.0-8.0) pH Units Ur Specific [place] (1.010-1.025) Urine Protein (Neg-Trace) mg/dL Urine Glucose (UA) (Normal) mg/dL Urine Ketones (Negative) mg/dL Urine Blood (Negative) Urine Nitrite (Negative) Urine Bilirubin (Negative) Urine Urobilinogen (Normal) mg/dL Ur Leukocyte Esterase (Negative) Urine Microscopic RBC (0-3) per hpf Urine Microscopic WBC (0-3) per hpf Ur Squamous Epith Cells (None-Few) per lpf Urine Bacteria (None-Few) per hpf Hyaline Casts (None-Few) per lpf Urine Mucus (Few) Urine Sperm Ur Culture Indicated? (NO) Salicylates (15.0-30.0) mg/dL Urine Opiates Screen (Hdkati=090) ng/mL Ur Buprenorphine Scrn (Cutoff=5) ng/mL Acetaminophen (10-20) mcg/mL Ur Barbiturates Screen (Acwcav=903) ng/mL Ur Phencyclidine Scrn (Cutoff=25) ng/mL Ur Amphetamines Screen (Rzkhca=9787) ng/mL U Benzodiazepines Scrn (Lqurnm=328) ng/mL Urine Cocaine Screen (Cutoff= 300) ng/mL U Marijuana (THC) Screen (Cutoff = 50) ng/mL Ur Drug Screen Interp Ethyl Alcohol (Less than 10) mg/dL - Labs Labs: Laboratory Last Values WBC 10.1 K/mcL (4.3-11.1) 04/22/19 00:33 RBC 4.77 M/mcL (4.19-5.50) 04/22/19 00:33 Hgb 13.9 g/dL (12.9-16.9) 04/22/19 00:33 Hct 42.0 % (37.5-50.1) 04/22/19 00:33 MCV 88.1 fL (83.0-100.0) 04/22/19 00:33 MCH 29.1 pg (28.0-33.3) 04/22/19 00:33 MCHC 33.1 g/dL (31.6-35.5) 04/22/19 00:33 RDW 14.6 % (11.5-14.5) H 04/22/19 00:33 Plt Count 220 K/mcL (140-400) 04/22/19 00:33 MPV 11.1 fL (9.4-12.4) 04/22/19 00:33 Immature Gran % 0.3 % (0-4) 04/22/19 00:33 Seg Neutrophils % 81.6 % 04/22/19 00:33 10.9 % 04/22/19 00:33 7.1 % 04/22/19 00:33 0.0 % 04/22/19 00:33 0.1 % 04/22/19 00:33 8.3 K/mcL (1.6-8.9) 04/22/19 00:33 1.1 K/mcL (0.6-4.6) 04/22/19 00:33 0.7 K/mcL (0.0-1.3) 04/22/19 00:33 0.0 K/mcL (0.0-0.6) 04/22/19 00:33 0.0 K/mcL (0.0-0.2) 04/22/19 00:33 Sodium 142 mEq/L (136-145) 04/23/19 05:09 Potassium 4.0 mEq/L (3.5-5.1) 04/23/19 05:09 Chloride 105 mEq/L (98-107) 04/23/19 05:09 Carbon Dioxide 25 mEq/L (23-29) 04/23/19 05:09 BUN 15 mg/dL (6-20) 04/23/19 05:09 0.86 mg/dL (0.70-1.30) 04/23/19 05:09 Est GFR ( Amer) > 60 (> 60) 04/23/19 05:09 Est GFR (Non-Af Amer) > 60 (> 60) 04/23/19 05:09 17 (6-26) 04/23/19 05:09 Glucose 108 mg/dL (70-105) H 04/23/19 05:09 295 (280-300) 04/23/19 05:09 Calcium 9.4 mg/dL (8.6-10.3) 04/23/19 05:09 Magnesium 1.9 mg/dL (1.6-2.6) 04/22/19 00:33 0.4 mg/dL (0.3-1.0) 04/21/19 09:21 0.1 mg/dL (0.0-0.2) 04/21/19 09:21 0.3 mg/dL (0.0-1.2) 04/21/19 09:21 AST 61 Units/L (13-39) H 04/21/19 09:21 ALT 99 Units/L (7-52) H 04/21/19 09:21 127 Units/L (34-104) H 04/21/19 09:21 8.2 g/dL (6.4-8.9) 04/21/19 09:21 4.8 g/dL (3.5-5.7) 04/21/19 09:21 3.4 g/dL (2.4-3.5) 04/21/19 09:21 1.4 (1.1-2.2) 04/21/19 09:21 Dark Yellow (Yellow) 04/21/19 11:31 Clear (Clear) 04/21/19 11:31 5.5 pH Units (5.0-8.0) 04/21/19 11:31 Ur Specific [place] > 1.030 (1.010-1.025) H 04/21/19 11:31 30 mg/dL (Neg-Trace) H 04/21/19 11:31 Normal mg/dL (Normal) 04/21/19 11:31 Negative mg/dL (Negative) 04/21/19 11:31 Negative (Negative) 04/21/19 11:31 Negative (Negative) 04/21/19 11:31 Negative (Negative) 04/21/19 11:31 Normal mg/dL (Normal) 04/21/19 11:31 Ur Leukocyte Esterase Negative (Negative) 04/21/19 11:31 0-3 per hpf (0-3) 04/21/19 11:31 5-15 per hpf (0-3) H 04/21/19 11:31 Ur Squamous Epith Cells Many per lpf (None-Few) H 04/21/19 11:31 Few per hpf (None-Few) 04/21/19 11:31 Hyaline Casts Few per lpf (None-Few) 04/21/19 11:31 Moderate (Few) H 04/21/19 11:31 Present 04/21/19 11:31 Ur Culture Indicated? YES (NO) A 04/21/19 11:31 Salicylates < 2.5 mg/dL (15.0-30.0) L 04/21/19 09:21 Negative ng/mL (Hpossu=419) 04/21/19 11:40 Ur Buprenorphine Scrn Negative ng/mL (Cutoff=5) 04/21/19 11:40 Acetaminophen < 10 mcg/mL (10-20) L 04/21/19 09:21 Ur Barbiturates Screen Negative ng/mL (Pdhkir=148) 04/21/19 11:40 Ur Phencyclidine Scrn Negative ng/mL (Cutoff=25) 04/21/19 11:40 Ur Amphetamines Screen Positive ng/mL (Xcbdhq=8563) H 04/21/19 11:40 U Benzodiazepines Scrn Negative ng/mL (Abwnsd=986) 04/21/19 11:40 Negative ng/mL (Cutoff= 300) 04/21/19 11:40 U Marijuana (THC) Screen Negative ng/mL (Cutoff = 50) 04/21/19 11:40 Ur Drug Screen Interp See Below 04/21/19 11:40 Ethyl Alcohol < 10 mg/dL (Less than 10) 04/21/19 09:21 Consult Discharge Plan - Plan Referrals: NONE,PCP [Primary Care Provider] -
--- NOTE | 2019-04-23 17:15 | Electrocardiograph Report ---
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
[2019-04-23] MEDS: Ziprasidone 20 MG in Water for inj. (sterile) 1 ML IM PRN (17:16)
[2019-04-24] MEDS: Dexmedetomidine HCl 400 MCG/100 ML MLS IVC SCH ×3 (00:53→10:45)
[2019-04-24] MEDS: Ipratropium/Albuterol Neb 3 ML IH SCH ×4 (03:57→22:21)
[2019-04-24] MEDS: *HR* Enoxaparin 40 MG/0.4 ML SYRINGE SQ SCH (05:01)
[2019-04-24] MEDS: *HR* LORazepam 2 MG/ML VIAL IVP PRN ×3 (10:09→19:34)
[2019-04-24] MEDS: Ziprasidone 20 MG in Water for inj. (sterile) 1 ML IM PRN ×2 (11:20→20:42)
--- NOTE | 2019-04-24 12:09 | Internal Med Progress Note ---
Hospitalist Progress Note - Encounter Date of Encounter: 04/24/19 Time of Encounter: 08:30 - Subjective Interval History: When seen today patient seemed to be resting comfortably in his bed. He did admit to having visual hallucinations overnight. He stated that he would often see the TV floating around the room. Denied any auditory hallucinations. He did admit to some nausea but denied any emesis. The night any chest pain or shortness of breath. Denied any heart palpitations. - Exam Vitals: Temp Pulse Resp BP Pulse Ox 97.4 F L 126 18 115/76 95 04/24/19 11:15 04/24/19 11:15 04/24/19 11:15 04/24/19 11:15 04/24/19 11:15 Exam: GENERAL APPEARANCE: Well developed, well nourished, alert and cooperative, and appears to be in no acute distress for the most part, but was slightly agitated at times during examination. HEAD: normocephalic. EYES: vision is grossly intact. EARS: hearing grossly intact. NOSE: No nasal discharge. CARDIAC: Normal S1 and S2. No S3, S4 or murmurs. Rhythm is regular. There is no peripheral edema, cyanosis or pallor. Extremities are warm and well perfused. Capillary refill is less than 2 seconds. No carotid bruits. LUNGS: Clear to auscultation and percussion without rales, rhonchi, wheezing or diminished breath sounds. ABDOMEN: Positive bowel sounds. Soft, nondistended, nontender. No guarding or rebound. No masses. MUSKULOSKELETAL: Adequately aligned spine. ROM intact spine and extremities. No joint erythema or tenderness. Normal muscular development. Normal gait. BACK: Examination of the spine reveals normal gait and posture, no spinal deformity, symmetry of spinal muscles, without tenderness, decreased range of motion or muscular spasm. EXTREMITIES: No significant deformity or joint abnormality. No edema. Peripheral pulses intact. No varicosities. LOWER EXTREMITY: Examination of both feet reveals all toes to be normal in size and symmetry, normal range of motion, normal sensation with distal capillary filling of less than 2 seconds without tenderness, swelling, discoloration, nodules, weakness or deformity. SKIN: Skin normal color, texture and turgor with no lesions or eruptions. PSYCHIATRIC: The mental examination revealed the patient was oriented to person, place, and time. Admitted to visual hallucinations overnight but was not actively hallucinating during exam. Denied any auditory hallucinations. Poor eye contact. No pressured speech. Denied any SI. Slightly agitated at times during examination. - Assessment and Plan (1) Methamphetamine abuse Current Visit: Yes Status: Acute Assessment and Plan: Head CT = negative CT with no acute intracranial abnormality. Urine toxicology = positive amphetamines. Put on precedex. No overnight events of agitation r eported. Patient is alert and oriented x 3. He is hypodermically stable. Tachycardia has resolved. Continues to c/o visual hallucinations. No auditory hallucinations. Denies SI. Currently on precedex. Psychiatry does recommend weaning off Precedex if possible. They recommended Geodon 20 mg IM every 4-6 hours as needed for agitation or psychosis. Additionally recommend transitioning to by mouth Geodon 20 mg twice a day scheduled. Plan: - Start to taper of precedex. - Start Geodon IM q4-6H. If does well, transition to PO. - IV Ativan as needed - Continue to monitor with a sitter. - At time of discharge, patient would benefit from going to dual diagnosis program. When patient is less altered, discussion should be broached (2) Altered mental status Current Visit: Yes Status: Acute Assessment and Plan: Improving. Plan as above for methamphetamine abuse. Plan: - Attempt to wean Precedex drip (3) Tachycardia Current Visit: Yes Status: Resolved Assessment and Plan: Initial EKG showed sinus tachycardia. Had been consistently in the 140's, however today is WNL. - U tox = positive methamphetamines - CBC, BMP within normal limits. - Chest x-ray = no acute pulmonary disease - Head CT = negative CT with no acute intracranial abnormality PLAN: Initial tachycardia was initially likely secondary to methamphetamine abuse; currently resolved - Continue to monitor on telemetry - Continue supportive care (4) Depression Current Visit: Yes Status: Acute Assessment and Plan: Patient has history of depression. Initially denied any suicidal or homicidal ideation - Normal labs and electrolytes. PLAN: - Resume home medications as patient's mental status improves. (5) Tobacco abuse Current Visit: Yes Status: Acute Assessment and Plan: Patient is a daily smoker - Wheezing is improved from yesterday. PLAN: - Scheduled DuoNeb's - Continue to monitor oxygen saturation DVT Prophylaxis: Lovenox - Time Spent with Patient Total time spent is greater than 50% in coordination of care (as documented) at patient's floor/unit and/or counseling patient: Internal Medicine: Result - Labs CBC & Chem 7: 04/22/19 00:33 04/23/19 05:09 - Impressions Impressions KUB X-Ray 04/23/19 11:16 IMPRESSION: 1. Nonspecific, nonobstructive bowel gas pattern. 2. No convincing radiopaque foreign body. 3. Questionable 3 mm stone projecting over the superior pole of the right kidney. D/ / Baldo Pleitez MD / Baldo Pleitez MD Interpreting Provider: Baldo Pleitez MD Consult Discharge Plan - Plan Referrals: NONE,PCP [Primary Care Provider] - (2) Altered mental status Qualifiers: Altered mental status type: unspecified Qualified Code(s): R41.82 - Altered mental status, unspecified (4) Depression Qualifiers: Depression Type: unspecified Qualified Code(s): F32.9 - Major depressive disorder, single episode, unspecified
[2019-04-25] MEDS: *HR* LORazepam 2 MG/ML VIAL IVP PRN ×4 (02:39→20:44)
[2019-04-25] MEDS: Ipratropium/Albuterol Neb 3 ML IH SCH (03:23)
[2019-04-25] MEDS: Ziprasidone 20 MG in Water for inj. (sterile) 1 ML IM PRN (03:24)
[2019-04-25] MEDS ORDERED: Levalbuterol Neb 1.25 MG/3 ML IH PRN (03:36)
[2019-04-25] MEDS: *HR* Enoxaparin 40 MG/0.4 ML SYRINGE SQ SCH (05:01)
--- NOTE | 2019-04-25 10:51 | Internal Med Progress Note ---
Hospitalist Progress Note - Encounter Date of Encounter: 04/25/19 Time of Encounter: 07:00 - Subjective Interval History: This morning I was informed by the charge nurse that the patient was requesting to leave the hospital. When I cam to see him, patient appeared to be very uneasy and was talking about how bad his current life situation is. He was expressing paranoid thoughts of the police coming to arrest him. He was then stating that he needed to go home to retrieve his cell phone and make a call to his employer otherwise he might end up loosing his brittni. I expressed to him that he would need to stay for the time being because I was worried about his state of mind in addition to his HR being elevated again. Once patient was able to calm down, e agreed to stay another day. When asked about any visual hallucinations, he still continues to state that he sees the TV in his room floating around all over the place. He denies any chest pain or SOB. Denies ay abdominal pain, nausea, or vomiting. Denies any fever. When I left the room, I got another call 1 hour later where the patient was threatening to leave again. Kishan is alert and oriented x 3 and understands why he was admitted to the hospital and the risks involved with leaving prematurely. I once again strongly recommended that he stay at least another day given that he was tachycardic and his state of mind seemed unstable, given his thoughts of paranoia. Patient ultimately agreed to stay another day. - Exam Vitals: Temp Pulse Resp BP Pulse Ox 98.3 F 131 18 121/72 96 04/25/19 07:02 04/25/19 07:19 04/25/19 07:02 04/25/19 07:02 04/25/19 07:02 Exam: GENERAL APPEARANCE: Well developed, well nourished, alert and cooperative, and appears to be in no acute distress for the most part, but was slightly agitated at times during examination. HEAD: normocephalic. EYES: vision is grossly intact. EARS: hearing grossly intact. NOSE: No nasal discharge. CARDIAC: Normal S1 and S2. No S3, S4 or murmurs. Rhythm is regular. There is no peripheral edema, cyanosis or pallor. Extremities are warm and well perfused. Capillary refill is less than 2 seconds. No carotid bruits. LUNGS: Clear to auscultation and percussion without rales, rhonchi, wheezing or diminished breath sounds. ABDOMEN: Positive bowel sounds. Soft, nondistended, nontender. No guarding or rebound. No masses. MUSKULOSKELETAL: Adequately aligned spine. ROM intact spine and extremities. No joint erythema or tenderness. Normal muscular development. Normal gait. BACK: Examination of the spine reveals normal gait and posture, no spinal deformity, symmetry of spinal muscles, without tenderness, decreased range of motion or muscular spasm. EXTREMITIES: No significant deformity or joint abnormality. No edema. Peripheral pulses intact. No varicosities. LOWER EXTREMITY: Examination of both feet reveals all toes to be normal in size and symmetry, normal range of motion, normal sensation with distal capillary filling of less than 2 seconds without tenderness, swelling, discoloration, nodules, weakness or deformity. SKIN: Skin normal color, texture and turgor with no lesions or eruptions. PSYCHIATRIC: The mental examination revealed the patient was oriented to person, place, and time. Admitted to visual hallucinations overnight but was not actively hallucinating during exam. Denied any auditory hallucinations. Poor eye contact. No pressured speech. Appeared agitated, often expressing paranoid thoug hts. - Assessment and Plan (1) Methamphetamine abuse Current Visit: Yes Status: Acute Assessment and Plan: Head CT = negative CT with no acute intracranial abnormality. Urine toxicology = positive amphetamines. Put on precedex. No overnight events of agitation reported. Patient is alert and oriented x 3. He is hypodermically stable. Tachycardia has resolved. Continues to c/o visual hallucinations. No auditory hallucinations. Denies SI. Currently on precedex. Psychiatry does recommend weaning off Precedex if possible. They recommended Geodon 20 mg IM every 4-6 hours as needed for agitation or psychosis. Additionally recommend transitioning to by mouth Geodon 20 mg twice a day scheduled. 04/25/19: Appeared more agitated today. Has become tacycardic again. Was threaten ing to leave AMA. Able to convince to stay again. Plan: - Weaning off precedex. - Transition to PO Geodon. - IV Ativan as needed - Sitter discontinued. - At time of discharge, patient would benefit from going to dual diagnosis program. When patient is less altered, discussion should be broached (2) Altered mental status Current Visit: Yes Status: Acute Assessment and Plan: mproving. Plan as above for methamphetamine abuse. Plan: - Weaning off Precedex drip. (3) Tachycardia Current Visit: Yes Status: Resolved Assessment and Plan: Initial EKG showed sinus tachycardia. Had been consistently in the 140's. Did resolve in the past few days, but has become tachycardic again, however only at 116 today. - U tox = positive methamphetamines - CBC, BMP within normal limits. - Chest x-ray = no acute pulmonary disease - Head CT = negative CT with no acute intracranial abnormality PLAN: Initial tachycardia was initially likely secondary to methamphetamine abuse; likely also due to agitation. - Continue to monitor on telemetry - Continue supportive care (4) Depression Current Visit: Yes Status: Acute Assessment and Plan: Patient has history of depression. Initially denied any suicidal or homicidal ideation - Normal labs and electrolytes. PLAN: - Resume home medications as patient's mental status improves. (5) Tobacco abuse Current Visit: Yes Status: Acute Assessment and Plan: Patient is a daily smoker - No wheezing on exam. PLAN: - Scheduled DuoNeb's - Continue to monitor oxygen saturation DVT Prophylaxis: Lovenox - Time Spent with Patient Total time spent is greater than 50% in coordination of care (as documented) at patient's floor/unit and/or counseling patient: Internal Medicine: Result - Labs CBC & Chem 7: 04/22/19 00:33 04/23/19 05:09 Consult Discharge Plan - Plan Referrals: NONE,PCP [Primary Care Provider] - (2) Altered mental status Qualifiers: Altered mental status type: unspecified Qualified Code(s): R41.82 - Altered mental status, unspecified (4) Depression Qualifiers: Depression Type: unspecified Qualified Code(s): F32.9 - Major depressive disorder, single episode, unspecified
[2019-04-25] MEDS ORDERED: Albuterol 2.5 MG/3 ML NEBULIZER IH PRN (12:51)
[2019-04-25] MEDS ORDERED: Acetaminophen 325 MG TABLET PO PRN (12:51)
[2019-04-25] MEDS ORDERED: Naloxone 0.4 MG/ML INJ IVP PRN (12:51)
[2019-04-25] MEDS ORDERED: Dexmedetomidine HCl 400 MCG/100 ML MLS IVC SCH (12:51)
[2019-04-25] MEDS: Ziprasidone 20 MG CAPSULE PO SCH (20:35)
[2019-04-25] MEDS ORDERED: Ziprasidone 20 MG CAPSULE PO SCH (21:00)
[2019-04-26] MEDS: *HR* LORazepam 2 MG/ML VIAL IVP PRN ×3 (01:17→07:20)
[2019-04-26] MEDS: *HR* Enoxaparin 40 MG/0.4 ML SYRINGE SQ SCH (05:18)
[2019-04-26] MEDS: Ziprasidone 20 MG CAPSULE PO SCH ×2 (07:18→23:20)
--- NOTE | 2019-04-26 07:59 | Internal Med Progress Note ---
Hospitalist Progress Note - Encounter Date of Encounter: 04/26/19 Time of Encounter: 09:45 - Subjective Interval History: The patient is seen and examined at bedside. He continued to have episodes of tachycardia overnight. Overall he says that he is feeling significantly better than he was. He does have some anxiety and some frustration. He also continues to be somewhat agitated. He says that he had no chest pains, shortness of breath, diaphoresis, diarrhea, constipation overnight. He is not having any hallucinations. - Exam Vitals: Temp Pulse Resp BP Pulse Ox 97.7 F 118 18 114/74 99 04/26/19 07:03 04/26/19 07:03 04/26/19 07:03 04/26/19 07:03 04/26/19 07:03 Exam: Gen: Vitals noted. No acute distress. Appears relatively calm. Eyes: anicteric sclerae, moist conjunctivae HENT: Atraumatic; oropharynx clear with moist mucous membranes Neck: Trachea midline; supple, no thyromegaly or lymphadenopathy Cardiac: RRR however tachycardic, no murmur, +S1/S2 Pulmonary: CTA bilaterally, no wheezes, rales or rhonchi, equal chest expansion Skin: Normal temperature, turgor and texture; no rash, ulcers or subcutaneous nodules Neuro: moves all extremities, no focal deficits. Psych: Appropriate mood and behavior. A&Ox3 - Assessment and Plan (1) Methamphetamine abuse Current Visit: Yes Status: Acute Assessment and Plan: Methamphetamine abuse with resultant tachycardia and psychotic disorder Patient remains somewhat agitated although he has substantially calmed down He remains on Geodon 20 mg by mouth twice a day He has been getting Ativan 2 mg IV about every 2-3 hours His heart rate does remain around 120, however he does appear significantly more calm We will continue to monitor the patient as he continues to become less agitated [place] discharged to dual diagnosis program as he becomes more stable Transitioned to by mouth Ativan (2) Tachycardia Current Visit: Yes Status: Acute Assessment and Plan: Tachycardia, heart rate up to 130 bpm Secondary to methamphetamine abuse and withdrawal We will continue Geodon as recommended by psychiatry, Ativan as needed (3) Substance-induced psychotic disorder Current Visit: Yes Status: Acute Assessment and Plan: Associated with abuse of methamphetamines, improved Continue scheduled Geodon and Ativan as needed (4) Tobacco abuse Current Visit: Yes Status: Acute Assessment and Plan: Nicotine patches prn - Time Spent with Patient Total time spent is greater than 50% in coordination of care (as documented) at patient's floor/unit and/or counseling patient: Internal Medicine: Result - Labs CBC & Chem 7: 04/22/19 00:33 04/23/19 05:09 Consult Discharge Plan - Plan Referrals: NONE,PCP [Primary Care Provider] -
[2019-04-26] MEDS: *HR* LORazepam 1 MG TABLET PO PRN ×5 (11:31→23:22)
[2019-04-26] MEDS: Gabapentin 400 MG CAPSULE PO SCH (20:25)
[2019-04-26] MEDS ORDERED: traZODone 50 MG TABLET PO SCH (21:00)
[2019-04-26] MEDS ORDERED: NON-FORMULARY MEDICATION 1 EACH EACH (Gabapentin 800 MG) PO SCH (21:00)
[2019-04-27] MEDS: *HR* Enoxaparin 40 MG/0.4 ML SYRINGE SQ SCH (04:58)
[2019-04-27] MEDS: Gabapentin 400 MG CAPSULE PO SCH ×2 (07:02→13:29)
[2019-04-27] MEDS: Ziprasidone 20 MG CAPSULE PO SCH (07:02)
[2019-04-27] MEDS: *HR* LORazepam 1 MG TABLET PO PRN ×2 (07:04→13:29)
--- NOTE | 2019-04-27 09:15 | Internal Med Progress Note ---
Hospitalist Progress Note - Encounter Date of Encounter: 04/27/19 Time of Encounter: 10:30 - Subjective Interval History: HPI: Patient feels better today. States he takes heroin once every several months in addition to methamphetamines. - Exam Vitals: Temp Pulse Resp BP Pulse Ox 97.6 F 93 16 108/70 97 04/27/19 06:48 04/27/19 06:48 04/27/19 06:48 04/27/19 06:48 04/27/19 08:20 Exam: PE general: middle aged male in no acute distress eyes: PERRL cardiac: RRR. no murmur gallop or rub. 2+ dorsalis pedis pulses. respiratory: CTA throughout anteriorly. GI: abdomen non-tender to palpation. MSK: no lower ext. edema. DVT Prophylaxis: Methamphetamine overdose -likely 2/2 methamphetamine dependence -patient swallowed bag of methamphetamine and was psychotic in the ED -urine toxicology + for methamphetamines -patient given precedex, lorazepam, geodon and mental status improved -lorazepam tapered. only 2 doses 2mg po on 04/27/19. Tachycardia -likely 2/2 methamphetamine overdose -144 on arrival. calmed to regular rate until 11:15 on 04/24/19 where it reached 126. Has decline since then to the 90's. Internal Medicine: Result - Labs CBC & Chem 7: 04/22/19 00:33 04/23/19 05:09 Consult Discharge Plan - Plan Referrals: NONE,PCP [Primary Care Provider] - (Patient does not want us to find him a PCP. Thank you) Prescriptions: LORazepam [Ativan] 1 mg PO BID PRN 2 Days #4 tablet PRN Reason: Agitation Ziprasidone [Geodon] 20 mg PO BIDWM #60 capsule
--- NOTE | 2019-04-27 15:00 | Discharge Summary ---
<Joe Mleo - Last Filed: 04/27/19 16:01> Date of Encounter: 04/27/19 - Discharge Diagnosis (1) Polysubstance abuse Priority: Primary Status: Acute (2) Methamphetamine abuse Priority: Secondary Status: Acute (3) Tachycardia Priority: Secondary Status: Resolved (4) Depression Priority: Secondary Status: Chronic Qualifiers: Depression Type: unspecified Qualified Code(s): F32.9 - Major depressive disorder, single episode, unspecified Hospital course: Mr. Headley is a 28 year old male - Time Spent with Patient Total time spent providing and/or coordinating discharge services: - Discharge Medications Prescriptions: New LORazepam [Ativan] 1 mg PO BID PRN 2 Days #4 tablet PRN Reason: Agitation Ziprasidone [Geodon] 20 mg PO BIDWM #60 capsule Continued Escitalopram [Lexapro] 10 mg PO DAILY Gabapentin 800 mg PO TID traZODone [TraZODone] 50 mg PO HS Ibuprofen 800 mg PO TID Home Medications: Escitalopram [Lexapro] 10 mg PO DAILY 02/25/19 [History] Gabapentin 800 mg PO TID 02/25/19 [History] Ibuprofen 800 mg PO TID 04/22/19 [History] traZODone [TraZODone] 50 mg PO HS 04/22/19 [History] LORazepam [Ativan] 1 mg PO BID PRN 2 Days #4 tablet 04/27/19 [Rx] Ziprasidone [Geodon] 20 mg PO BIDWM #60 capsule 04/27/19 [Rx] Allergies/Adverse Reactions: Allergy/AdvReac Type Severity Reaction Status Date / Time No Known Allergies Allergy Verified 04/22/19 13:44 Date of admission: 04/21/19 18:07 Primary care physician: PCP NONE Consults: 04/23/19 11:22 Consult to Psychiatry [CONS] Routine Consulting Provider: Psychiatry [facility] Reason consult: Altered mental status Other reason and/or additional details: P/w methamphetamine overdose; Noted to be agitated, confused, anxious, hallucinating; Initially given Ativan without much response; Started on precedex drip given agitation, aggression; continues to be agitated, hallucinating Time Notified: 11:22 Call Completed: Yes - Constitutional Vitals: Temp Pulse Resp BP Pulse Ox 97.9 F 98 16 103/66 97 04/27/19 15:39 04/27/19 15:39 04/27/19 15:39 04/27/19 15:39 04/27/19 15:39 - Patient Status Disposition: Home, Self-Care Condition: Fair - Discharge Instructions Follow Up With: NONE,PCP [Primary Care Provider] - (Patient does not want us to find him a PCP. Thank you) - Attending Attestation I examined this patient and my medical decision-making was reviewed with the Resident Physician on 04/27/19. I agree with the documented findings, disposition and treatment plan as described except to the extent set forth below. Mr Headley has been hospitalized for psychosis related to polysubstance abuse. He remained confused and tachycardic for many days. Today his mental status has improved and his heart rate is controlled. He is afebrile and ready for discharge home. Exam Alert Comfortable Mucus membranes dry Heart reg and not tachy No wheeze Abd soft No tremor Plan D/C home today. D/C time 36min <Ajit Cortez - Last Filed: 04/27/19 18:35> Date of Encounter: 04/27/19 Time of Encounter: 10:30 - Discharge Diagnosis (1) Methamphetamine abuse Priority: Primary Status: Acute (2) Tachycardia Priority: Secondary Status: Resolved Hospital course: Mr. Headley is a 28 year old male with no significant PMH per EMR who presented to the ED on 04/21 after swallowing a bag of methamphetamine. He was psychotic upon arrival with AMS. He was tachycardic upon arrival at 144 beats per minute. He was treated with a lorazepam and 5L NS. lorazepam was tapered while home gabapentin, escitalopram, trazodone, ziprasidone were initially held. precedex and geodon were given. Heart rate in the 90's at discharge. Patient discharged on home doses of escitalopram, gabapentin, trazodone, ibuprofen. Psychology discussed rehab facility with patient but he denied. - Time Spent with Patient Total time spent providing and/or coordinating discharge services: Date of admission: 04/21/19 18:07 Primary care physician: PCP NONE Consults: 04/23/19 11:22 Consult to Psychiatry [CONS] Routine Consulting Provider: Psychiatry [facility] Reason consult: Altered mental status Other reason and/or additional details: P/w methamphetamine overdose; Noted to be agitated, confused, anxious, hallucinating; Initially given Ativan without much response; Started on precedex drip given agitation, aggression; continues to be agitated, hallucinating Time Notified: 11:22 Call Completed: Yes - Constitutional Vitals: Temp Pulse Resp BP Pulse Ox 97.6 F 98 16 105/63 97 04/27/19 10:45 04/27/19 10:45 04/27/19 10:45 04/27/19 10:45 04/27/19 10:45 General appearance: Present: A&O X 2. Absent: answers questions appropriately Exam: as performed in progress note 04/27/19 - Patient Status Functional capacity at discharge: independent ambulation Overall status at discharge: patient is progressing back to baseline - Diet and Activity Activity: increase activity as tolerated Diet: advance to your usual diet
[2019-04-27 15:40] VITALS: BP 103/66
[2019-04-27] MEDS ORDERED: Ziprasidone 20 MG CAPSULE PO SCH (17:00)
== END 2019-04-27 16:00 | disposition home or self-care (01) | DRG 812 ==
LOC: EMEROOARM 09:14 → 2NNU 09:14 → SUATTDRO 14:21 → 2NNU 15:02 → SUATTDRO 18:07 → 3ANU 04-25 12:50
PROVIDERS: ADMIT Internal Medicine; ATTEND Internal Medicine